=== PATIENT | female | born 1975 | race American Indian/Alaskan Native ===

== ENCOUNTER 2017-03-08 10:15 | Emergency (ER) | payer OTHER ==
[~2017-03-08] VITALS: Ht 165.1 cm; Wt 87.1 kg
[~2017-03-08 10:15] MED LIST: ALBU90OI INH; ATEN25 PO; AZIT250 PO; Advil Pm Liqui1 EACH PO; Antivert25 MG PO; BENZ100A PO; CEPH500 PO; CIPR250 PO; CITA20 PO; CLIN300 PO; CYCL10 PO; Cipro500 MG PO; Citrate Of Mag300 ML PO; DIPH50 PO; DOXY100; DOXY100 PO; Esgic Tablet1 EACH PO; Flagyl500 MG PO; Fleet Enema132 ML PR; GAVILAX17 GM PO; HYDACE5 PO; HYDHOMSY; HYDR1TAB94 PO; IBUP600 PO; IBUP800 PO; ISODICACE PO; LEVFLO500 PO; LEVO750 PO; LORA1 PO; MELO7.5 PO; METPRE4DP PO; METR500 PO; Mobic15 MG PO; NAPR500 PO; Naprosyn500 MG PO; Norco 5-325 Ta1 EACH PO; ONDA4ODT MM; ONDA8 PO; OXYACE5T PO; PENVK500 PO; PHENA200 PO; PRED20 PO; PROACE100 PO; PROM25 PO; Percocet 5-3251 EACH PO; Prednisone20 MG PO; RXCODGUASY PO; RXHYDACE PO; RXNAPNA550 PO; RXONDA4ODT MM; RXPROACE PO; SACC250C PO; SOMA350 MG PO; SULTRIDS PO; TRAM50 PO; Ultram50 MG PO; Valium5 MG PO; ZOLP5 PO; Zofran Odt4 MG PO; Zofran4 MG PO; [UNRECOGNIZED DRUG - OTHER]
[2017-03-08 10:49] LABS: BASOPHILS ABSOLUTE AUTO 0.03 K/mm3 (0.00-0.23); BASOPHILS PERCENT AUTO 0 % (0-2); EOSINOPHILS ABSOLUTE AUTO 0.22 K/mm3 (0.00-0.68); EOSINOPHILS PERCENT AUTO 2 % (0-6); Hematocrit 43.6 % (33.0-51.0); Hemoglobin 14.5 g/dL (11.5-16.0); IMMATURE GRAN ABSOLUTE AUTO 0.04 K/mm3 (0.00-0.10); IMMATURE GRAN PERCENT AUTO 0 % (0-1); LYMPHOCYTES ABSOLUTE AUTO 3.65 K/mm3 (0.84-5.20); LYMPHOCYTES PERCENT AUTO 30 % (21-46); MONOCYTES ABSOLUTE AUTO 0.68 K/mm3 (0.16-1.47); MONOCYTES PERCENT AUTO 6 % (4-13); Mean Corpuscular HGB 27.4 pg (26.0-34.0); Mean Corpuscular HGB Conc 33.3 g/dL (31.5-36.5); Mean Corpuscular Volume 82 fL (80-100); Mean Platelet Volume 10.1 fL (9.1-12.4); NEUTROPHILS ABSOLUTE AUTO 7.45 K/mm3 (1.96-9.15); NEUTROPHILS PERCENT AUTO 62 % (41-73); Platelet Count 382 K/mm3 (150-400); RDW Coefficient Variation 14.3 % (11.7-14.2); RDW Standard Deviation 42.7 fL (35.1-46.3); White Blood Cell Count 12.07 K/mm3 (4.00-11.30)
[2017-03-08 10:55] LABS: Source, Urine Clean Catch
[2017-03-08 10:58] LABS: Bilirubin, Urine Neg (Neg); Blood, Urine Neg (Neg); Glucose Qualitative, Urine Neg (Neg); Ketones, Urine Neg (Neg); Leukocyte Esterase, Urine Neg (Neg); Nitrite, Urine Neg (Neg); Protein, Urine Neg (Neg); Urobilinogen, Urine NORM (Normal)
[2017-03-08 11:07] LABS: Alanine Aminotransfer (ALT/SGP 29 U/L (12-78); Albumin, Blood 4.1 g/dL (3.4-5.0); Alk Phos 77 U/L (50-136); Anion Gap 7 mmol/L (6-16); Aspartate Aminotrans (AST/SGOT 15 U/L (12-37); Bilirubin, Total 0.2 mg/dL (0.1-1.0); Blood Urea Nitrogen 8 mg/dL (8-24); Bun/Creatinine Ratio 15.3 (12.0-20.0); CO2, Blood 24 mmol/L (21-32); Calcium, Blood 9.4 mg/dL (8.5-10.1); Chloride, Blood 106 mmol/L (98-108); Creatinine, Blood 0.52 mg/dL (0.40-1.00); Globulin, Blood 4.3 g/dL (2.2-4.0); Glomerular Filtration Rate >60 (60-); Glucose, Blood 91 mg/dL (70-99); Potassium, Blood 4.2 mmol/L (3.5-5.5); Sodium, Blood 137 mmol/L (136-145); Total Protein, Blood 8.4 g/dL (6.4-8.2)
[2017-03-08 11:13] LABS: Appearance, Urine Clear (Clear); Color, Urine Yellow (P-Yellow)
[2017-03-08] MEDS ORDERED: Bentyl10 MG PO (13:50)
[2017-09-30] MEDS ORDERED: Imitrex50 MG JT (17:26)
[2017-09-30] MEDS ORDERED: Zofran Odt4 MG PO (17:37)
[2017-12-13] MEDS ORDERED: Hydrocodone-Ap1 EA23 PO (18:42)
[2017-12-13] MEDS ORDERED: METR500 PO (18:42)
[2017-12-13] MEDS ORDERED: Tizanidine HCl2 MG (18:42)
[2017-12-13] MEDS ORDERED: CIPR500 PO (18:42)
[2017-12-13] MEDS ORDERED: ONDA4ODT PO (18:42)
[2017-12-13] MEDS ORDERED: Flagyl500 MG PO (20:04)
[2017-12-13] MEDS ORDERED: Norco 5-325 Ta1 EACH PO (20:04)
[2017-12-13] MEDS ORDERED: Cipro500 MG PO (20:04)
[2018-01-29] MEDS ORDERED: Zofran Odt8 MG SL (18:58)
[2018-01-29] MEDS ORDERED: Flagyl500 MG PO (18:58)
[2018-01-29] MEDS ORDERED: LEVFLO500 PO (18:58)
[2018-01-29] MEDS ORDERED: Norco 5-325 Ta1 EACH PO (18:58)
[2018-02-15] MEDS ORDERED: Cipro500 MG PO (22:45)
[2018-02-15] MEDS ORDERED: Flagyl500 MG PO (22:45)
[2018-02-15] MEDS ORDERED: Zofran4 MG PO (22:56)
== END 2017-03-08 14:00 | disposition home or self-care (01) ==
LOC: ER 10:15
PROVIDERS: Psychiatry & Neurology Psychiatry
DX: R10.32 Left lower quadrant pain (principal); G43.909 Migraine, unspecified, not intractable, without status migrainosus; F17.200 Nicotine dependence, unspecified, uncomplicated; Z88.0 Allergy status to penicillin; Z88.5 Allergy status to narcotic agent; Z88.8 Allergy status to other drugs, medicaments and biological substances; Z79.899 Other long term (current) drug therapy; Z79.2 Long term (current) use of antibiotics
CPT/HCPCS: 36415; 74177; 80053; 81003; 83690; 85025; 96361; 96374; 96375; 96376; 99284; J1170; J2405; J7030; Q9967

== ENCOUNTER 2017-04-26 16:19 | Emergency (ER) | payer OTHER ==
[~2017-04-26] VITALS: Ht 165.1 cm; Wt 88.5 kg
[~2017-04-26 16:19] MED LIST changes: +Bentyl10 MG PO
[2017-04-26 16:54] LABS: BASOPHILS ABSOLUTE AUTO 0.07 K/mm3 (0.00-0.23); BASOPHILS PERCENT AUTO 1 % (0-2); EOSINOPHILS PERCENT AUTO 3 % (0-6); Hematocrit 41.7 % (33.0-51.0); Hemoglobin 13.6 g/dL (11.5-16.0); IMMATURE GRAN ABSOLUTE AUTO 0.03 K/mm3 (0.00-0.10); IMMATURE GRAN PERCENT AUTO 0 % (0-1); LYMPHOCYTES ABSOLUTE AUTO 3.95 K/mm3 (0.84-5.20); LYMPHOCYTES PERCENT AUTO 32 % (21-46); MONOCYTES ABSOLUTE AUTO 0.49 K/mm3 (0.16-1.47); MONOCYTES PERCENT AUTO 4 % (4-13); Mean Corpuscular HGB 26.4 pg (26.0-34.0); Mean Corpuscular HGB Conc 32.6 g/dL (31.5-36.5); Mean Corpuscular Volume 81 fL (80-100); Mean Platelet Volume 9.6 fL (9.1-12.4); NEUTROPHILS ABSOLUTE AUTO 7.54 K/mm3 (1.96-9.15); NEUTROPHILS PERCENT AUTO 60 % (41-73); Platelet Count 374 K/mm3 (150-400); RDW Coefficient Variation 13.5 % (11.7-14.2); RDW Standard Deviation 39.7 fL (35.1-46.3); Red Blood Cell Count 5.16 M/mm3 (3.80-5.20); White Blood Cell Count 12.48 K/mm3 (4.00-11.30)
[2017-04-26 17:09] LABS: Source, Urine Clean Catch
[2017-04-26 17:11] LABS: Alanine Aminotransfer (ALT/SGP 19 U/L (12-78); Albumin, Blood 4.1 g/dL (3.4-5.0); Albumin/Globulin Ratio 0.9 (0.8-1.8); Alk Phos 91 U/L (50-136); Anion Gap 7 mmol/L (6-16); Aspartate Aminotrans (AST/SGOT 8 U/L (12-37); Bilirubin, Total 0.3 mg/dL (0.1-1.0); Blood Urea Nitrogen 6 mg/dL (8-24); Bun/Creatinine Ratio 12.6 (12.0-20.0); CO2, Blood 28 mmol/L (21-32); Calcium, Blood 9.3 mg/dL (8.5-10.1); Chloride, Blood 104 mmol/L (98-108); Creatinine, Blood 0.48 mg/dL (0.40-1.00); Globulin, Blood 4.6 g/dL (2.2-4.0); Glomerular Filtration Rate >60 (60-); Glucose, Blood 87 mg/dL (70-99); Potassium, Blood 3.3 mmol/L (3.5-5.5); Sodium, Blood 139 mmol/L (136-145); Total Protein, Blood 8.7 g/dL (6.4-8.2)
[2017-04-26 17:19] LABS: Bilirubin, Urine Neg (Neg); Blood, Urine 1+ (Neg); Glucose Qualitative, Urine Neg (Neg); Ketones, Urine Neg (Neg); Leukocyte Esterase, Urine Neg (Neg); Nitrite, Urine Neg (Neg); Protein, Urine Neg (Neg); Urobilinogen, Urine NORM (Normal)
[2017-04-26 17:26] LABS: Appearance, Urine Clear (Clear); Bacteria Not Seen /hpf; Color, Urine Yellow (P-Yellow); Red Blood Cells, Urine Not Seen /hpf (0-2); Squamous Epithelial Cells Few /hpf (Few); White Blood Cells, Urine Not Seen /hpf (0-5)
[2017-04-26] MEDS ORDERED: HYDR1TAB94 PO (19:36)
[2017-04-26] MEDS ORDERED: ONDA4ODT MM (19:36)
[2017-09-30] MEDS ORDERED: Imitrex50 MG JT (17:26)
[2017-09-30] MEDS ORDERED: Zofran Odt4 MG PO (17:37)
[2017-12-13] MEDS ORDERED: Hydrocodone-Ap1 EA23 PO (18:42)
[2017-12-13] MEDS ORDERED: METR500 PO (18:42)
[2017-12-13] MEDS ORDERED: ONDA4ODT PO (18:42)
[2017-12-13] MEDS ORDERED: Tizanidine HCl2 MG (18:42)
[2017-12-13] MEDS ORDERED: CIPR500 PO (18:42)
[2017-12-13] MEDS ORDERED: Cipro500 MG PO (20:04)
[2017-12-13] MEDS ORDERED: Norco 5-325 Ta1 EACH PO (20:04)
[2017-12-13] MEDS ORDERED: Flagyl500 MG PO (20:04)
[2018-01-29] MEDS ORDERED: Zofran Odt8 MG SL (18:58)
[2018-01-29] MEDS ORDERED: LEVFLO500 PO (18:58)
[2018-01-29] MEDS ORDERED: Norco 5-325 Ta1 EACH PO (18:58)
[2018-01-29] MEDS ORDERED: Flagyl500 MG PO (18:58)
[2018-02-15] MEDS ORDERED: Flagyl500 MG PO (22:45)
[2018-02-15] MEDS ORDERED: Cipro500 MG PO (22:45)
[2018-02-15] MEDS ORDERED: Zofran4 MG PO (22:56)
== END 2017-04-26 19:57 | disposition home or self-care (01) ==
LOC: ER 16:19
PROVIDERS: Emergency Medicine
DX: K52.9 Noninfective gastroenteritis and colitis, unspecified (principal); Z88.0 Allergy status to penicillin; Z88.5 Allergy status to narcotic agent; Z88.8 Allergy status to other drugs, medicaments and biological substances; Z79.899 Other long term (current) drug therapy; G43.909 Migraine, unspecified, not intractable, without status migrainosus; F17.210 Nicotine dependence, cigarettes, uncomplicated
CPT/HCPCS: 36415; 74177; 80053; 81001; 82272; 83690; 85025; 96361; 96374; 96375; 99284; J1170; J2405; J7030; Q9967

== ENCOUNTER 2017-05-22 21:22 | Emergency (ER) | payer OTHER ==
[~2017-05-22] VITALS: Ht 165.1 cm; Wt 88.5 kg
[2017-05-22 22:03] LABS: BASOPHILS ABSOLUTE AUTO 0.08 K/mm3 (0.00-0.23); BASOPHILS PERCENT AUTO 1 % (0-2); EOSINOPHILS ABSOLUTE AUTO 0.65 K/mm3 (0.00-0.68); EOSINOPHILS PERCENT AUTO 5 % (0-6); Hematocrit 42.4 % (33.0-51.0); Hemoglobin 13.8 g/dL (11.5-16.0); IMMATURE GRAN ABSOLUTE AUTO 0.04 K/mm3 (0.00-0.10); IMMATURE GRAN PERCENT AUTO 0 % (0-1); LYMPHOCYTES ABSOLUTE AUTO 4.91 K/mm3 (0.84-5.20); LYMPHOCYTES PERCENT AUTO 35 % (21-46); MONOCYTES ABSOLUTE AUTO 0.78 K/mm3 (0.16-1.47); MONOCYTES PERCENT AUTO 6 % (4-13); Mean Corpuscular HGB 26.5 pg (26.0-34.0); Mean Corpuscular HGB Conc 32.5 g/dL (31.5-36.5); Mean Corpuscular Volume 82 fL (80-100); NEUTROPHILS ABSOLUTE AUTO 7.67 K/mm3 (1.96-9.15); NEUTROPHILS PERCENT AUTO 54 % (41-73); RDW Coefficient Variation 13.8 % (11.7-14.2); RDW Standard Deviation 40.8 fL (35.1-46.3); White Blood Cell Count 14.13 K/mm3 (4.00-11.30)
[2017-05-22 22:07] LABS: Mean Platelet Volume 10.8 fL (9.1-12.4); Platelet Count 240 K/mm3 (150-400)
[2017-05-22 22:20] LABS: Alanine Aminotransfer (ALT/SGP 23 U/L (12-78); Albumin, Blood 3.8 g/dL (3.4-5.0); Albumin/Globulin Ratio 0.8 (0.8-1.8); Alk Phos 85 U/L (50-136); Anion Gap 5 mmol/L (6-16); Aspartate Aminotrans (AST/SGOT 13 U/L (12-37); Bilirubin, Total 0.1 mg/dL (0.1-1.0); Blood Urea Nitrogen 9 mg/dL (8-24); Bun/Creatinine Ratio 15.8 (12.0-20.0); CO2, Blood 28 mmol/L (21-32); Chloride, Blood 104 mmol/L (98-108); Creatinine, Blood 0.57 mg/dL (0.40-1.00); Globulin, Blood 4.7 g/dL (2.2-4.0); Glomerular Filtration Rate >60 (60-); Glucose, Blood 86 mg/dL (70-99); Sodium, Blood 137 mmol/L (136-145); Total Protein, Blood 8.5 g/dL (6.4-8.2)
[2017-05-22] MEDS ORDERED: Cipro500 MG PO (23:45)
[2017-09-30] MEDS ORDERED: Imitrex50 MG JT (17:26)
[2017-09-30] MEDS ORDERED: Zofran Odt4 MG PO (17:37)
[2017-12-13] MEDS ORDERED: Tizanidine HCl2 MG (18:42)
[2017-12-13] MEDS ORDERED: Hydrocodone-Ap1 EA23 PO (18:42)
[2017-12-13] MEDS ORDERED: CIPR500 PO (18:42)
[2017-12-13] MEDS ORDERED: METR500 PO (18:42)
[2017-12-13] MEDS ORDERED: ONDA4ODT PO (18:42)
[2017-12-13] MEDS ORDERED: Norco 5-325 Ta1 EACH PO (20:04)
[2017-12-13] MEDS ORDERED: Cipro500 MG PO (20:04)
[2017-12-13] MEDS ORDERED: Flagyl500 MG PO (20:04)
[2018-01-29] MEDS ORDERED: Norco 5-325 Ta1 EACH PO (18:58)
[2018-01-29] MEDS ORDERED: Zofran Odt8 MG SL (18:58)
[2018-01-29] MEDS ORDERED: Flagyl500 MG PO (18:58)
[2018-01-29] MEDS ORDERED: LEVFLO500 PO (18:58)
[2018-02-15] MEDS ORDERED: Cipro500 MG PO (22:45)
[2018-02-15] MEDS ORDERED: Flagyl500 MG PO (22:45)
[2018-02-15] MEDS ORDERED: Zofran4 MG PO (22:56)
== END 2017-05-22 23:54 | disposition home or self-care (01) ==
LOC: ER 21:22
PROVIDERS: Emergency Medicine
DX: R10.32 Left lower quadrant pain (principal); F17.210 Nicotine dependence, cigarettes, uncomplicated; Z88.0 Allergy status to penicillin; Z88.5 Allergy status to narcotic agent; Z88.8 Allergy status to other drugs, medicaments and biological substances
CPT/HCPCS: 74176; 80053; 81000; 83690; 85025; 96361; 96374; 96375; 99284; J1170; J2405; J7030

== ENCOUNTER 2017-06-06 21:18 | Emergency (ER) | payer OTHER ==
[~2017-06-06] VITALS: Ht 165.1 cm; Wt 86.2 kg
[2017-06-07] MEDS ORDERED: Prednisone20 MG PO (13:59)
== END 2017-06-06 23:55 | disposition home or self-care (01) ==
LOC: ER 21:18
DX: G43.909 Migraine, unspecified, not intractable, without status migrainosus (principal); Z88.0 Allergy status to penicillin; Z88.5 Allergy status to narcotic agent; Z88.8 Allergy status to other drugs, medicaments and biological substances; Z79.2 Long term (current) use of antibiotics; F17.210 Nicotine dependence, cigarettes, uncomplicated
CPT/HCPCS: 96361; 96374; 96375; 99284; J1100; J1200; J1630; J1885; J2405; J7030

== ENCOUNTER 2017-06-07 12:44 | Emergency (ER) | payer OTHER ==
[~2017-06-07] VITALS: Ht 635 cm; Wt 86.2 kg
[2017-06-07 13:54] LABS: BASOPHILS ABSOLUTE AUTO 0.02 K/mm3 (0.00-0.23); BASOPHILS PERCENT AUTO 0 % (0-2); EOSINOPHILS PERCENT AUTO 0 % (0-6); Hematocrit 41.1 % (33.0-51.0); Hemoglobin 13.8 g/dL (11.5-16.0); IMMATURE GRAN ABSOLUTE AUTO 0.08 K/mm3 (0.00-0.10); IMMATURE GRAN PERCENT AUTO 1 % (0-1); LYMPHOCYTES ABSOLUTE AUTO 1.56 K/mm3 (0.84-5.20); LYMPHOCYTES PERCENT AUTO 9 % (21-46); MONOCYTES ABSOLUTE AUTO 0.56 K/mm3 (0.16-1.47); MONOCYTES PERCENT AUTO 3 % (4-13); Mean Corpuscular HGB 27.1 pg (26.0-34.0); Mean Corpuscular HGB Conc 33.6 g/dL (31.5-36.5); Mean Corpuscular Volume 81 fL (80-100); Mean Platelet Volume 9.7 fL (9.1-12.4); NEUTROPHILS ABSOLUTE AUTO 14.75 K/mm3 (1.96-9.15); NEUTROPHILS PERCENT AUTO 87 % (41-73); Platelet Count 391 K/mm3 (150-400); RDW Coefficient Variation 13.6 % (11.7-14.2); RDW Standard Deviation 39.5 fL (35.1-46.3); White Blood Cell Count 16.97 K/mm3 (4.00-11.30)
[2017-06-07] MEDS ORDERED: Prednisone20 MG PO (13:59)
[2017-06-07 14:09] LABS: Anion Gap 8 mmol/L (6-16); Blood Urea Nitrogen 9 mg/dL (8-24); Bun/Creatinine Ratio 19.7 (12.0-20.0); CO2, Blood 26 mmol/L (21-32); Calcium, Blood 9.3 mg/dL (8.5-10.1); Chloride, Blood 107 mmol/L (98-108); Creatinine, Blood 0.46 mg/dL (0.40-1.00); Glomerular Filtration Rate >60 (60-); Glucose, Blood 114 mg/dL (70-99); Potassium, Blood 3.7 mmol/L (3.5-5.5); Sodium, Blood 141 mmol/L (136-145)
== END 2017-06-07 14:05 | disposition home or self-care (01) ==
LOC: ER 12:44
PROVIDERS: Emergency Medicine
DX: T78.3XXA Angioneurotic edema, initial encounter (principal); G24.9 Dystonia, unspecified; T43.4X5A Adverse effect of butyrophenone and thiothixene neuroleptics, initial encounter; Z88.0 Allergy status to penicillin; Z88.5 Allergy status to narcotic agent; Z88.8 Allergy status to other drugs, medicaments and biological substances; G43.909 Migraine, unspecified, not intractable, without status migrainosus; F17.210 Nicotine dependence, cigarettes, uncomplicated
CPT/HCPCS: 36415; 80048; 85025; 96374; 96375; 99283; J1200; J2930; J3490; J7030

== ENCOUNTER 2017-06-24 16:20 | Emergency (ER) | payer OTHER ==
[~2017-06-24] VITALS: Ht 165.1 cm; Wt 90.7 kg
[2017-06-24 16:52] LABS: BASOPHILS ABSOLUTE AUTO 0.07 K/mm3 (0.00-0.23); BASOPHILS PERCENT AUTO 1 % (0-2); EOSINOPHILS ABSOLUTE AUTO 0.52 K/mm3 (0.00-0.68); EOSINOPHILS PERCENT AUTO 4 % (0-6); Hemoglobin 13.3 g/dL (11.5-16.0); IMMATURE GRAN ABSOLUTE AUTO 0.04 K/mm3 (0.00-0.10); IMMATURE GRAN PERCENT AUTO 0 % (0-1); LYMPHOCYTES ABSOLUTE AUTO 3.83 K/mm3 (0.84-5.20); LYMPHOCYTES PERCENT AUTO 30 % (21-46); MONOCYTES ABSOLUTE AUTO 0.54 K/mm3 (0.16-1.47); MONOCYTES PERCENT AUTO 4 % (4-13); Mean Corpuscular HGB Conc 33.3 g/dL (31.5-36.5); Mean Corpuscular Volume 81 fL (80-100); NEUTROPHILS ABSOLUTE AUTO 7.83 K/mm3 (1.96-9.15); NEUTROPHILS PERCENT AUTO 61 % (41-73); Platelet Count 348 K/mm3 (150-400); RDW Coefficient Variation 13.3 % (11.7-14.2); RDW Standard Deviation 39.2 fL (35.1-46.3); Red Blood Cell Count 4.93 M/mm3 (3.80-5.20); White Blood Cell Count 12.83 K/mm3 (4.00-11.30)
[2017-06-24 16:55] LABS: Source, Urine Clean Catch
[2017-06-24 17:01] LABS: Appearance, Urine Clear (Clear); Bilirubin, Urine Neg (Neg); Blood, Urine Neg (Neg); Color, Urine Yellow (P-Yellow); Glucose Qualitative, Urine Neg (Neg); Ketones, Urine Neg (Neg); Leukocyte Esterase, Urine 1+ (Neg); Nitrite, Urine Neg (Neg); Protein, Urine Neg (Neg); Urobilinogen, Urine NORM (Normal)
[2017-06-24 17:12] LABS: Alanine Aminotransfer (ALT/SGP 21 U/L (12-78); Albumin, Blood 3.8 g/dL (3.4-5.0); Albumin/Globulin Ratio 0.9 (0.8-1.8); Alk Phos 91 U/L (50-136); Anion Gap 6 mmol/L (6-16); Aspartate Aminotrans (AST/SGOT 11 U/L (12-37); Bilirubin, Total 0.2 mg/dL (0.1-1.0); Blood Urea Nitrogen 8 mg/dL (8-24); Bun/Creatinine Ratio 15.1 (12.0-20.0); CO2, Blood 27 mmol/L (21-32); Calcium, Blood 9.2 mg/dL (8.5-10.1); Chloride, Blood 106 mmol/L (98-108); Creatinine, Blood 0.53 mg/dL (0.40-1.00); Globulin, Blood 4.3 g/dL (2.2-4.0); Glomerular Filtration Rate >60 (60-); Glucose, Blood 91 mg/dL (70-99); Potassium, Blood 3.9 mmol/L (3.5-5.5); Sodium, Blood 139 mmol/L (136-145); Total Protein, Blood 8.1 g/dL (6.4-8.2)
[2017-06-24 17:59] LABS: Bacteria Not Seen /hpf; Red Blood Cells, Urine Not Seen /hpf (0-2); Squamous Epithelial Cells Few /hpf (Few); White Blood Cells, Urine Not Seen /hpf (0-5)
[2017-06-24] MEDS ORDERED: Flagyl500 MG PO (19:06)
[2017-06-24] MEDS ORDERED: Bactrim Ds Tab1 EACH PO (19:06)
[2017-06-24] MEDS ORDERED: Percocet 5-3251 EACH PO (19:06)
[2017-06-24] MEDS ORDERED: PROM25 PO (19:06)
== END 2017-06-24 19:40 | disposition home or self-care (01) ==
LOC: ER 16:20
PROVIDERS: Emergency Medicine
DX: K57.92 Diverticulitis of intestine, part unspecified, without perforation or abscess without bleeding (principal); F17.210 Nicotine dependence, cigarettes, uncomplicated; Z88.0 Allergy status to penicillin; Z88.5 Allergy status to narcotic agent; Z88.8 Allergy status to other drugs, medicaments and biological substances
CPT/HCPCS: 36415; 80053; 81001; 83690; 85025; 96374; 96375; 96376; 99284; J2405; J2550; J3010; J7030

== ENCOUNTER 2017-06-29 09:59 | Day surgery (SDC) | payer OTHER ==
[~2017-06-29] VITALS: Ht 165.1 cm; Wt 88.4 kg
[~2017-06-29 09:59] MED LIST changes: +Bactrim Ds Tab1 EACH PO
== END 2017-06-29 12:28 | disposition home or self-care (01) ==
LOC: ORSCSDS 09:59
PROVIDERS: Internal Medicine Gastroenterology
PROC: 0DJD8ZZ Inspection of Lower Intestinal Tract, Via Natural or Artificial Opening Endoscopic (ICD-10-PCS; principal; 2017-06-29 11:30)
DX: K52.9 Noninfective gastroenteritis and colitis, unspecified (principal); R10.32 Left lower quadrant pain; K57.30 Diverticulosis of large intestine without perforation or abscess without bleeding; K64.1 Second degree hemorrhoids; F17.210 Nicotine dependence, cigarettes, uncomplicated
CPT/HCPCS: J1980; J7120

== ENCOUNTER 2017-09-06 17:59 | Emergency (ER) | payer OTHER ==
[~2017-09-06] VITALS: Ht 162.6 cm; Wt 86.2 kg
[2017-09-06 19:35] LABS: BASOPHILS ABSOLUTE AUTO 0.06 K/mm3 (0.00-0.23); BASOPHILS PERCENT AUTO 0 % (0-2); EOSINOPHILS ABSOLUTE AUTO 0.23 K/mm3 (0.00-0.68); EOSINOPHILS PERCENT AUTO 2 % (0-6); Hematocrit 38.7 % (33.0-51.0); Hemoglobin 12.9 g/dL (11.5-16.0); IMMATURE GRAN ABSOLUTE AUTO 0.05 K/mm3 (0.00-0.10); IMMATURE GRAN PERCENT AUTO 0 % (0-1); LYMPHOCYTES ABSOLUTE AUTO 3.83 K/mm3 (0.84-5.20); LYMPHOCYTES PERCENT AUTO 28 % (21-46); MONOCYTES ABSOLUTE AUTO 0.48 K/mm3 (0.16-1.47); MONOCYTES PERCENT AUTO 4 % (4-13); Mean Corpuscular HGB 27.4 pg (26.0-34.0); Mean Corpuscular HGB Conc 33.3 g/dL (31.5-36.5); Mean Corpuscular Volume 82 fL (80-100); Mean Platelet Volume 9.3 fL (9.1-12.4); NEUTROPHILS ABSOLUTE AUTO 8.96 K/mm3 (1.96-9.15); NEUTROPHILS PERCENT AUTO 66 % (41-73); Platelet Count 349 K/mm3 (150-400); RDW Coefficient Variation 13.2 % (11.7-14.2); RDW Standard Deviation 39.6 fL (35.1-46.3); White Blood Cell Count 13.61 K/mm3 (4.00-11.30)
[2017-09-06 19:53] LABS: Alanine Aminotransfer (ALT/SGP 17 U/L (12-78); Albumin, Blood 3.7 g/dL (3.4-5.0); Albumin/Globulin Ratio 0.9 (0.8-1.8); Alk Phos 93 U/L (50-136); Anion Gap 8 mmol/L (6-16); Aspartate Aminotrans (AST/SGOT 6 U/L (12-37); Bilirubin, Total 0.2 mg/dL (0.1-1.0); Blood Urea Nitrogen 10 mg/dL (8-24); Bun/Creatinine Ratio 17.9 (12.0-20.0); CO2, Blood 27 mmol/L (21-32); Calcium, Blood 9.1 mg/dL (8.5-10.1); Chloride, Blood 107 mmol/L (98-108); Creatinine, Blood 0.56 mg/dL (0.40-1.00); Globulin, Blood 4.2 g/dL (2.2-4.0); Glomerular Filtration Rate >60 (60-); Glucose, Blood 87 mg/dL (70-99); Potassium, Blood 3.7 mmol/L (3.5-5.5); Sodium, Blood 142 mmol/L (136-145); Total Protein, Blood 7.9 g/dL (6.4-8.2)
[2017-09-06] MEDS ORDERED: LORZONE375 MG PO (20:26)
[2017-09-06 20:34] LABS: Source, Urine Clean Catch
[2017-09-06 20:47] LABS: Bilirubin, Urine Neg (Neg); Blood, Urine 1+ (Neg); Glucose Qualitative, Urine Neg (Neg); Ketones, Urine Neg (Neg); Leukocyte Esterase, Urine 1+ (Neg); Nitrite, Urine Neg (Neg); Protein, Urine Neg (Neg); Specific Gravity, Urine 1.015 (1.003-1.022); Urobilinogen, Urine NORM (Normal)
[2017-09-06 20:56] LABS: Appearance, Urine Clear (Clear); Color, Urine Pale Yellow (P-Yellow)
[2017-09-06 20:58] LABS: Bacteria Few /hpf; Mucus Light (0-Heavy); Red Blood Cells, Urine 0-2 /hpf (0-2); Squamous Epithelial Cells Few /hpf (Few)
[2017-09-06] MEDS ORDERED: Norco 5-325 Ta1 EACH PO (22:02)
[2017-09-06] MEDS ORDERED: Cipro500 MG PO (22:02)
[2017-09-06] MEDS ORDERED: Zofran Odt4 MG PO (22:02)
[2017-09-06] MEDS ORDERED: METR500 PO (22:02)
== END 2017-09-06 22:48 | disposition home or self-care (01) ==
LOC: ER 17:59
PROVIDERS: Emergency Medicine
DX: K57.92 Diverticulitis of intestine, part unspecified, without perforation or abscess without bleeding (principal); Z88.0 Allergy status to penicillin; Z88.5 Allergy status to narcotic agent; Z88.8 Allergy status to other drugs, medicaments and biological substances; G43.909 Migraine, unspecified, not intractable, without status migrainosus; F17.210 Nicotine dependence, cigarettes, uncomplicated
CPT/HCPCS: 36415; 80053; 81001; 81025; 82272; 83690; 85025; 87086; 96374; 99284; J3010

== ENCOUNTER 2017-09-12 15:58 | Emergency (ER) | payer OTHER ==
[~2017-09-12] VITALS: Ht 162.6 cm; Wt 86.2 kg
[~2017-09-12 15:58] MED LIST changes: +LORZONE375 MG PO
[2017-09-12 16:23] LABS: BASOPHILS ABSOLUTE AUTO 0.06 K/mm3 (0.00-0.23); BASOPHILS PERCENT AUTO 1 % (0-2); EOSINOPHILS ABSOLUTE AUTO 0.29 K/mm3 (0.00-0.68); EOSINOPHILS PERCENT AUTO 2 % (0-6); Hematocrit 41.7 % (33.0-51.0); Hemoglobin 13.6 g/dL (11.5-16.0); IMMATURE GRAN ABSOLUTE AUTO 0.06 K/mm3 (0.00-0.10); IMMATURE GRAN PERCENT AUTO 1 % (0-1); LYMPHOCYTES ABSOLUTE AUTO 3.62 K/mm3 (0.84-5.20); LYMPHOCYTES PERCENT AUTO 28 % (21-46); MONOCYTES PERCENT AUTO 5 % (4-13); Mean Corpuscular HGB 27.2 pg (26.0-34.0); Mean Corpuscular HGB Conc 32.6 g/dL (31.5-36.5); Mean Corpuscular Volume 83 fL (80-100); Mean Platelet Volume 9.6 fL (9.1-12.4); NEUTROPHILS ABSOLUTE AUTO 8.25 K/mm3 (1.96-9.15); NEUTROPHILS PERCENT AUTO 64 % (41-73); Platelet Count 380 K/mm3 (150-400); RDW Coefficient Variation 13.3 % (11.7-14.2); RDW Standard Deviation 40.9 fL (35.1-46.3); White Blood Cell Count 12.98 K/mm3 (4.00-11.30)
[2017-09-12 16:39] LABS: Alanine Aminotransfer (ALT/SGP 19 U/L (12-78); Albumin, Blood 3.9 g/dL (3.4-5.0); Albumin/Globulin Ratio 0.9 (0.8-1.8); Alk Phos 115 U/L (50-136); Anion Gap 7 mmol/L (6-16); Aspartate Aminotrans (AST/SGOT 8 U/L (12-37); Bilirubin, Total 0.2 mg/dL (0.1-1.0); Blood Urea Nitrogen 10 mg/dL (8-24); Bun/Creatinine Ratio 16.5 (12.0-20.0); CO2, Blood 28 mmol/L (21-32); Calcium, Blood 8.7 mg/dL (8.5-10.1); Chloride, Blood 104 mmol/L (98-108); Creatinine, Blood 0.61 mg/dL (0.40-1.00); Globulin, Blood 4.4 g/dL (2.2-4.0); Glomerular Filtration Rate >60 (60-); Glucose, Blood 127 mg/dL (70-99); Potassium, Blood 3.7 mmol/L (3.5-5.5); Sodium, Blood 139 mmol/L (136-145); Total Protein, Blood 8.3 g/dL (6.4-8.2)
[2017-09-12] MEDS ORDERED: Cipro500 MG PO (19:28)
[2017-09-12] MEDS ORDERED: Flagyl500 MG PO (19:28)
[2017-09-12] MEDS ORDERED: Percocet 5-3251 EACH PO (19:28)
== END 2017-09-12 19:33 | disposition home or self-care (01) ==
LOC: ER 15:58
PROVIDERS: Nurse Practitioner Family
DX: K57.92 Diverticulitis of intestine, part unspecified, without perforation or abscess without bleeding (principal); Z88.0 Allergy status to penicillin; Z88.5 Allergy status to narcotic agent; Z88.8 Allergy status to other drugs, medicaments and biological substances; Z79.899 Other long term (current) drug therapy; Z79.2 Long term (current) use of antibiotics; F17.210 Nicotine dependence, cigarettes, uncomplicated
CPT/HCPCS: 36415; 74177; 80053; 83690; 85025; 99284-25; Q9967

== ENCOUNTER 2017-10-10 16:12 | Emergency (ER) | payer OTHER ==
[~2017-10-10] VITALS: Ht 165.1 cm; Wt 88.5 kg
[~2017-10-10 16:12] MED LIST changes: +Imitrex50 MG JT
[2017-10-10 17:00] LABS: BASOPHILS ABSOLUTE AUTO 0.07 K/mm3 (0.00-0.23); BASOPHILS PERCENT AUTO 1 % (0-2); EOSINOPHILS ABSOLUTE AUTO 0.18 K/mm3 (0.00-0.68); EOSINOPHILS PERCENT AUTO 1 % (0-6); Hematocrit 40.7 % (33.0-51.0); Hemoglobin 13.7 g/dL (11.5-16.0); IMMATURE GRAN ABSOLUTE AUTO 0.06 K/mm3 (0.00-0.10); IMMATURE GRAN PERCENT AUTO 0 % (0-1); LYMPHOCYTES ABSOLUTE AUTO 3.59 K/mm3 (0.84-5.20); LYMPHOCYTES PERCENT AUTO 26 % (21-46); MONOCYTES ABSOLUTE AUTO 0.62 K/mm3 (0.16-1.47); MONOCYTES PERCENT AUTO 5 % (4-13); Mean Corpuscular HGB 27.1 pg (26.0-34.0); Mean Corpuscular HGB Conc 33.7 g/dL (31.5-36.5); Mean Corpuscular Volume 81 fL (80-100); Mean Platelet Volume 9.7 fL (9.1-12.4); NEUTROPHILS ABSOLUTE AUTO 9.11 K/mm3 (1.96-9.15); NEUTROPHILS PERCENT AUTO 67 % (41-73); Platelet Count 349 K/mm3 (150-400); RDW Coefficient Variation 13.2 % (11.7-14.2); RDW Standard Deviation 38.5 fL (35.1-46.3); Red Blood Cell Count 5.05 M/mm3 (3.80-5.20); White Blood Cell Count 13.63 K/mm3 (4.00-11.30)
[2017-10-10 17:22] LABS: Alanine Aminotransfer (ALT/SGP 18 U/L (12-78); Albumin, Blood 4.1 g/dL (3.4-5.0); Alk Phos 85 U/L (50-136); Anion Gap 12 mmol/L (6-16); Aspartate Aminotrans (AST/SGOT 9 U/L (12-37); Bilirubin, Total 0.6 mg/dL (0.1-1.0); Blood Urea Nitrogen 8 mg/dL (8-24); Bun/Creatinine Ratio 13.7 (12.0-20.0); CO2, Blood 23 mmol/L (21-32); Calcium, Blood 9.7 mg/dL (8.5-10.1); Chloride, Blood 103 mmol/L (98-108); Creatinine, Blood 0.59 mg/dL (0.40-1.00); Glomerular Filtration Rate >60 (60-); Glucose, Blood 104 mg/dL (70-99); Potassium, Blood 3.3 mmol/L (3.5-5.5); Sodium, Blood 138 mmol/L (136-145); Total Protein, Blood 8.1 g/dL (6.4-8.2); Troponin I <0.015 ng/mL (0.000-0.040)
== END 2017-10-10 18:07 | disposition home or self-care (01) ==
LOC: ER 16:12
PROVIDERS: Nurse Practitioner Family
DX: R00.0 Tachycardia, unspecified (principal); F17.210 Nicotine dependence, cigarettes, uncomplicated
CPT/HCPCS: 36415; 80053; 83735; 84484; 85025; 93005; 93010; 96374; 99285-25; J2060

== ENCOUNTER 2017-12-05 16:32 | Emergency (ER) | payer OTHER ==
[~2017-12-05] VITALS: Ht 165.1 cm; Wt 88.5 kg
[2017-12-05 17:50] LABS: BASOPHILS ABSOLUTE AUTO 0.07 K/mm3 (0.00-0.23); BASOPHILS PERCENT AUTO 1 % (0-2); EOSINOPHILS ABSOLUTE AUTO 0.48 K/mm3 (0.00-0.68); EOSINOPHILS PERCENT AUTO 4 % (0-6); Hemoglobin 12.1 g/dL (11.5-16.0); IMMATURE GRAN ABSOLUTE AUTO 0.03 K/mm3 (0.00-0.10); IMMATURE GRAN PERCENT AUTO 0 % (0-1); LYMPHOCYTES ABSOLUTE AUTO 3.37 K/mm3 (0.84-5.20); LYMPHOCYTES PERCENT AUTO 30 % (21-46); MONOCYTES ABSOLUTE AUTO 0.66 K/mm3 (0.16-1.47); MONOCYTES PERCENT AUTO 6 % (4-13); Mean Corpuscular HGB 26.7 pg (26.0-34.0); Mean Corpuscular HGB Conc 32.7 g/dL (31.5-36.5); Mean Corpuscular Volume 82 fL (80-100); Mean Platelet Volume 9.9 fL (9.1-12.4); NEUTROPHILS ABSOLUTE AUTO 6.78 K/mm3 (1.96-9.15); NEUTROPHILS PERCENT AUTO 60 % (41-73); Platelet Count 331 K/mm3 (150-400); RDW Coefficient Variation 13.7 % (11.7-14.2); Red Blood Cell Count 4.54 M/mm3 (3.80-5.20); White Blood Cell Count 11.39 K/mm3 (4.00-11.30)
[2017-12-05 18:12] LABS: Source, Urine Clean Catch
[2017-12-05] MEDS ORDERED: Cipro500 MG PO (18:12)
[2017-12-05] MEDS ORDERED: Flagyl500 MG PO (18:12)
[2017-12-05] MEDS ORDERED: Zofran Odt4 MG PO (18:12)
[2017-12-05] MEDS ORDERED: Norco 5-325 Ta1 EACH PO (18:12)
[2017-12-05 18:14] LABS: Appearance, Urine Clear (Clear); Bilirubin, Urine Neg (Neg); Blood, Urine Neg (Neg); Color, Urine Yellow (P-Yellow); Glucose Qualitative, Urine Neg (Neg); Ketones, Urine Neg (Neg); Leukocyte Esterase, Urine 1+ (Neg); Nitrite, Urine Neg (Neg); Protein, Urine Neg (Neg); Urobilinogen, Urine 1+ (Normal)
[2017-12-05 18:15] LABS: Alanine Aminotransfer (ALT/SGP 29 U/L (12-78); Albumin, Blood 3.5 g/dL (3.4-5.0); Albumin/Globulin Ratio 0.9 (0.8-1.8); Alk Phos 83 U/L (50-136); Anion Gap 10 mmol/L (6-16); Aspartate Aminotrans (AST/SGOT 13 U/L (12-37); Bilirubin, Total 0.3 mg/dL (0.1-1.0); Blood Urea Nitrogen 7 mg/dL (8-24); Bun/Creatinine Ratio 12.7 (12.0-20.0); CO2, Blood 27 mmol/L (21-32); Calcium, Blood 8.7 mg/dL (8.5-10.1); Chloride, Blood 104 mmol/L (98-108); Creatinine, Blood 0.55 mg/dL (0.40-1.00); Globulin, Blood 3.9 g/dL (2.2-4.0); Glomerular Filtration Rate >60 (60-); Glucose, Blood 98 mg/dL (70-99); Potassium, Blood 3.1 mmol/L (3.5-5.5); Sodium, Blood 141 mmol/L (136-145); Total Protein, Blood 7.4 g/dL (6.4-8.2)
[2017-12-05 18:50] LABS: Bacteria Mod /hpf; Mucus Light (0-Heavy); Red Blood Cells, Urine 0-2 /hpf (0-2); Squamous Epithelial Cells Few /hpf (Few)
== END 2017-12-05 19:24 | disposition home or self-care (01) ==
LOC: ER 16:32
PROVIDERS: Emergency Medicine
DX: K57.92 Diverticulitis of intestine, part unspecified, without perforation or abscess without bleeding (principal); F17.210 Nicotine dependence, cigarettes, uncomplicated; Z88.0 Allergy status to penicillin; Z88.5 Allergy status to narcotic agent; Z88.8 Allergy status to other drugs, medicaments and biological substances
CPT/HCPCS: 36415; 80053; 81001; 83690; 85025; 87086; 96374; 99284-25; J1885